=== PATIENT | male | born 1945 | race Hispanic/Latino ===

== ENCOUNTER 2018-01-31 08:37 | Inpatient (IN) | payer OTHER ==
[~2018-01-31] VITALS: Ht 175.3 cm; Wt 84.2 kg
[2018-01-31] VITALS (22 sets, daily range): BP systolic 91–125; BP diastolic 39–70
[2018-01-31] MEDS ORDERED: NOREPINEPHRINE 4MG/NS 250ML 250 ML IV SCH (10:15)
[2018-01-31] MEDS ORDERED: CARV6.25 PO (12:30)
[2018-01-31] MEDS ORDERED: EZET10TA26 PO (12:30)
[2018-01-31] MEDS ORDERED: DILT240C3 PO (12:30)
[2018-01-31] MEDS ORDERED: ATOR40TA69 PO (12:30)
[2018-01-31] MEDS ORDERED: OMEP20CA10 PO (12:30)
[2018-01-31] MEDS ORDERED: FURO20TA6 PO (12:32)
[2018-01-31] MEDS ORDERED: CEFEPIME 1GM+NS 50ML 50 ML IV SCH (13:30)
[2018-01-31 13:32] LABS: MEAN CORPUSCULAR HEMOGLOBIN 30.9 pg (27.0-33.0); MEAN CORPUSCULAR HGB CONC 33.4 g/dL (32.0-36.0); MEAN CORPUSCULAR VOLUME 92.6 fL (79-99); PLATELET COUNT (AUTO) 127 K/uL (130-400); RED BLOOD CELL COUNT(AUTO) 3.79 MIL/uL (4.50-6.20); RED CELL DISTRIBUTION WIDTH 15.5 % (11.0-15.5); WHITE BLOOD COUNT (AUTO) 22.1 K/uL (4.8-10.8)
[2018-01-31 13:44] LABS: INR 1.18 (0.85-1.15); PARTIAL THROMBOPLASTIN TIME 34.7 SEC (26.3-35.5); PROTHROMBIN TIME 12.4 SEC (9.6-11.6)
[2018-01-31 13:47] LABS: BILIRUBIN,TOTAL 1.4 mg/dL (0.2-1.0); TOTAL PROTEIN, SERUM 6.8 g/dL (6.0-8.3)
[2018-01-31] MEDS ORDERED: CEFEPIME HCL 1 GM VIAL IVP SCH (14:00)
[2018-01-31] MEDS: VANCOMYCIN 1GM+NS 250ML 250 ML IV SCH (14:00)
[2018-01-31] MEDS ORDERED: ATORVASTATIN CALCIUM 40 MG TABLET PO PRN (14:00)
[2018-01-31] MEDS ORDERED: PHARMACY COMMUNICATION MISC SCH (14:00)
[2018-01-31 14:01] LABS: APPEARANCE,URINE Clear (CLEAR); BILIRUBIN,URINE Negative (NEGATIVE); COLOR,URINE Dark Yellow (YELLOW); GLUCOSE, URINE (UA) Negative (NEGATIVE); KETONES,URINE Negative (NEGATIVE); LEUKOCYTE ESTERASE ,URINE Small (NEGATIVE); NITRATE,URINE Negative (NEGATIVE); OCCULT BLOOD,URINE Moderate (NEGATIVE); PROTEIN,URINE POS 2+ (NEGATIVE)
[2018-01-31] MEDS: VANCOMYCIN HCL 1 GM VIAL IV SCH (14:12)
[2018-01-31 14:22] LABS: BACTERIA,URINE Few /HPF (None Seen); SQUAMOUS EPITHELIAL CELL,UR 0-2 /HPF (0-2)
[2018-01-31 14:23] LABS: COARSE GRANULAR CASTS,URINE 0-2 /LPF (None Seen)
[2018-01-31] MEDS ORDERED: ACETAMINOPHEN EXTRA STRENGTH 500 MG TABLET ONE (14:29)
[2018-01-31] MEDS ORDERED: ACETAMINOPHEN EXTRA STRENGTH 500 MG TABLET PO PRN (14:30)
[2018-01-31] MEDS ORDERED: CARVEDILOL 6.25 MG TABLET PO SCH (21:00)
[2018-01-31] MEDS: FUROSEMIDE 20 MG TABLET PO SCH (21:09)
[2018-01-31] MEDS: CLOTRIMAZOLE 30 GM CREAM.GM. TP SCH (21:10)
[2018-02-01] VITALS (13 sets, daily range): BP systolic 112–139; BP diastolic 49–87
[2018-02-01 03:56] LABS: MEAN CORPUSCULAR HGB CONC 34.7 g/dL (32.0-36.0); MEAN CORPUSCULAR VOLUME 92.1 fL (79-99); NUCLEATED RED BLOOD CELLS 0.1 % (0.0-0.19); PLATELET COUNT (AUTO) 113 K/uL (130-400); RED BLOOD CELL COUNT(AUTO) 3.47 MIL/uL (4.50-6.20); RED CELL DISTRIBUTION WIDTH 15.6 % (11.0-15.5); WHITE BLOOD COUNT (AUTO) 19.1 K/uL (4.8-10.8)
[2018-02-01] MEDS ORDERED: DEXTROSE 50%-WATER 50 ML DISP.SYRIN IV PRN (08:00)
[2018-02-01] MEDS ORDERED: GLUCAGON 1MG KIT 1 MG ML IM PRN (08:00)
[2018-02-01] MEDS ORDERED: MAGNESIUM 2GM PREMIX 50ML 50 ML IV SCH (08:00)
[2018-02-01] MEDS: PANTOPRAZOLE SODIUM 40 MG TABLET.DR PO SCH (09:00)
[2018-02-01] MEDS: FUROSEMIDE 20 MG TABLET PO SCH ×2 (09:00→21:46)
[2018-02-01] MEDS: EZETIMIBE 10 MG TAB PO SCH (09:00)
[2018-02-01] MEDS ORDERED: DILTIAZEM HCL 120 MG CAP.SR.24H PO SCH (09:00)
[2018-02-01] MEDS: CLOTRIMAZOLE 30 GM CREAM.GM. TP SCH ×2 (09:16→21:47)
[2018-02-01] MEDS: CEFEPIME HCL 1 GM VIAL IVP SCH (09:16)
[2018-02-01] MEDS: INSULIN HUMULIN R 100 UNIT/ML 3ML SQ SCH ×3 (12:00→23:16)
[2018-02-01] MEDS ORDERED: THROMBIN-JMI 5000 UNIT/VIAL TP ONE (13:36)
[2018-02-01] MEDS ORDERED: LIDOCAINE HCL-MPF 2% 5ML VIAL ONE (13:37)
[2018-02-01] MEDS: VANCOMYCIN 1GM+NS 250ML 250 ML IV SCH (14:00)
[2018-02-01] MEDS: VANCOMYCIN HCL 1 GM VIAL IV SCH (15:29)
[2018-02-01] MEDS ORDERED: ACETAMINOPHEN 325 MG TAB PO PRN (16:30)
[2018-02-01] MEDS ORDERED: ONDANSETRON HCL MDV 20ML 2 MG/ML VIAL IVP PRN (16:30)
[2018-02-01] MEDS ORDERED: HYDROCODONE/ACETAMINOPHEN 5/325 MG TAB PO PRN (16:30)
[2018-02-01] MEDS: MORPHINE SULFATE 2 MG/ML 1ML SYG IVP PRN ×2 (16:44→18:32)
[2018-02-02] VITALS (16 sets, daily range): BP systolic 91–141; BP diastolic 42–60
[2018-02-02 04:20] LABS: HEMATOCRIT 31.8 % (42-54); MEAN CORPUSCULAR HEMOGLOBIN 31.2 pg (27.0-33.0); MEAN CORPUSCULAR HGB CONC 34.1 g/dL (32.0-36.0); MEAN CORPUSCULAR VOLUME 91.4 fL (79-99); PLATELET COUNT (AUTO) 100 K/uL (130-400); RED BLOOD CELL COUNT(AUTO) 3.48 MIL/uL (4.50-6.20); RED CELL DISTRIBUTION WIDTH 15.8 % (11.0-15.5); WHITE BLOOD COUNT (AUTO) 17.5 K/uL (4.8-10.8)
[2018-02-02 04:29] LABS: INR 1.17 (0.85-1.15); PARTIAL THROMBOPLASTIN TIME 35.1 SEC (26.3-35.5); PROTHROMBIN TIME 12.2 SEC (9.6-11.6)
[2018-02-02 04:33] LABS: CREATININE 2.8 mg/dL (0.5-1.5); POTASSIUM 3.7 mmol/L (3.5-5.1)
[2018-02-02] MEDS: CEFEPIME HCL 1 GM VIAL IVP SCH (07:59)
[2018-02-02] MEDS: CLOTRIMAZOLE 30 GM CREAM.GM. TP SCH ×2 (08:00→21:00)
[2018-02-02] MEDS: PANTOPRAZOLE SODIUM 40 MG TABLET.DR PO SCH (09:00)
[2018-02-02] MEDS: EZETIMIBE 10 MG TAB PO SCH (09:00)
[2018-02-02] MEDS: FUROSEMIDE 20 MG TABLET PO SCH ×2 (09:00→21:00)
[2018-02-02] MEDS ORDERED: CEFUROXIME 1.5GM+NS 100ML 100 ML IV SCH (12:00)
[2018-02-02] MEDS ORDERED: HEPARIN SODIUM 1000UNIT/ML 10ML VIAL ONE ×3 (13:50→19:39)
[2018-02-02] MEDS: VANCOMYCIN 1GM+NS 250ML 250 ML IV SCH (14:00)
[2018-02-02] MEDS: VANCOMYCIN HCL 1 GM VIAL IV SCH (14:05)
[2018-02-02] MEDS ORDERED: BACITRACIN 50,000 UNIT VIAL ONE ×2 (14:18→15:49)
[2018-02-02] MEDS ORDERED: PROPOFOL 10 MG/ML 20ML VIAL IV ONE (14:49)
[2018-02-02] MEDS ORDERED: FENTANYL CITRATE PF 50 MCG/1 ML 2ML VIAL ONE (15:22)
[2018-02-02] MEDS ORDERED: EPHEDRINE SULFATE 50 MG/ML AMPULE ONE ×2 (16:09→20:15)
[2018-02-02] MEDS ORDERED: PHENYLEPHRINE HCL 10 MG/ML 1ML VIAL IV ONE (16:45)
[2018-02-02] MEDS ORDERED: GLYCOPYRROLATE 0.2 MG/ML 5 ML VIAL ONE (16:45)
[2018-02-02] MEDS ORDERED: ROCURONIUM BROMIDE 10MG/1ML 5ML VL ONE (16:45)
[2018-02-02] MEDS ORDERED: LIDOCAINE HCL 4% LTA SOL 4 ML VIAL ONE (16:46)
[2018-02-02] MEDS ORDERED: SUCCINYLCHOLINE CHLORIDE 20 MG/ML 10 ML VIAL ONE (16:46)
[2018-02-02] MEDS ORDERED: LIDOCAINE HCL 2% JELLY 5 ML ONE (16:46)
[2018-02-02] MEDS ORDERED: ACETAMINOPHEN 325 MG TAB PO PRN (17:15)
[2018-02-02] MEDS ORDERED: TRAMADOL HCL 50 MG TABLET PO PRN ×2 (17:15)
[2018-02-02] MEDS ORDERED: MAGNESIUM HYDROXIDE 30 ML/UDCUP PO PRN (17:15)
[2018-02-02 17:49] LABS: ABG BASE EXCESS -13.5 mmol/L (-2.0-3.0); ABG OXYGEN SATURATION 99.1 % (95.0-99.0); ABG PCO2 72 mmHg (35-48)
[2018-02-02 18:20] LABS: ABG BASE EXCESS -7.5 mmol/L (-2.0-3.0); ABG HCO3 19.4 mmol/L (21.0-28.0); ABG OXYGEN SATURATION 99.1 % (95.0-99.0); ABG PCO2 45 mmHg (35-48)
[2018-02-02] MEDS ORDERED: MIDAZOLAM HCL 1 MG/ML 2ML VIAL ONE (18:31)
[2018-02-02 19:37] LABS: ABG BASE EXCESS -8.3 mmol/L (-2.0-3.0); ABG HCO3 17.8 mmol/L (21.0-28.0); ABG OXYGEN SATURATION 98.6 % (95.0-99.0); ABG PCO2 39 mmHg (35-48)
[2018-02-02] MEDS ORDERED: OCTYL 2-CYANOACRYLATE 1 EACH TP ONE (19:37)
[2018-02-02] MEDS ORDERED: PROTAMINE SULFATE 10 MG/ML 25ML VIAL IV ONE (19:39)
[2018-02-02] MEDS ORDERED: PROPOFOL 1000 MG/100 ML 100 ML IV ONE (20:33)
[2018-02-02] MEDS: INSULIN HUMULIN R 100 UNIT/ML 3ML SQ SCH (21:00)
[2018-02-02] MEDS ORDERED: PROPOFOL 1000 MG/100 ML IV PRN (21:45)
[2018-02-02 21:51] LABS: ABG BASE EXCESS -9.6 mmol/L (-2.0-3.0); ABG HCO3 16.8 mmol/L (21.0-28.0); ABG PCO2 39 mmHg (35-48)
[2018-02-02] MEDS ORDERED: SODIUM BICARB 50MEQ 50ML VIAL IV STA ×2 (22:02→23:34)
[2018-02-02] MEDS ORDERED: SODIUM BICARB 50MEQ 50ML VIAL ONE (22:09)
[2018-02-02 23:10] LABS: ABG BASE EXCESS -5.9 mmol/L (-2.0-3.0); ABG HCO3 19.6 mmol/L (21.0-28.0); ABG OXYGEN SATURATION 97.3 % (95.0-99.0); ABG PCO2 39 mmHg (35-48)
[2018-02-02] MEDS: IPRATROPIUM/ALBUTEROL SULFATE 3 ML SOLUTION IH PRN (23:17)
[2018-02-03] VITALS (27 sets, daily range): BP systolic 103–131; BP diastolic 34–74
[2018-02-03 03:07] LABS: ABG BASE EXCESS 0.5 mmol/L (-2.0-3.0); ABG HCO3 24.3 mmol/L (21.0-28.0); ABG OXYGEN SATURATION 99.8 % (95.0-99.0); ABG PCO2 37 mmHg (35-48)
[2018-02-03 04:26] LABS: HEMATOCRIT 28.7 % (42-54); MEAN CORPUSCULAR HEMOGLOBIN 31.6 pg (27.0-33.0); MEAN CORPUSCULAR HGB CONC 34.7 g/dL (32.0-36.0); PLATELET COUNT (AUTO) 90 K/uL (130-400); RED BLOOD CELL COUNT(AUTO) 3.15 MIL/uL (4.50-6.20); WHITE BLOOD COUNT (AUTO) 19.1 K/uL (4.8-10.8)
[2018-02-03 04:49] LABS: B-TYPE NATRIURETIC PEPTIDE 802 pg/mL (0-100)
[2018-02-03 05:06] LABS: ALBUMIN 1.3 g/dL (3.5-5.0); BILIRUBIN,TOTAL 2.2 mg/dL (0.2-1.0); CREATININE 2.7 mg/dL (0.5-1.5); POTASSIUM 3.9 mmol/L (3.5-5.1); TOTAL PROTEIN, SERUM 5.3 g/dL (6.0-8.3)
[2018-02-03] MEDS: INSULIN HUMULIN R 100 UNIT/ML 3ML SQ SCH ×4 (06:00→21:00)
[2018-02-03] MEDS: CEFEPIME HCL 1 GM VIAL IVP SCH (09:14)
[2018-02-03] MEDS: PANTOPRAZOLE SODIUM 40 MG TABLET.DR PO SCH (09:14)
[2018-02-03] MEDS: EZETIMIBE 10 MG TAB PO SCH (09:14)
[2018-02-03] MEDS: FUROSEMIDE 20 MG TABLET PO SCH (09:14)
[2018-02-03] MEDS: CLOTRIMAZOLE 30 GM CREAM.GM. TP SCH ×2 (09:15→20:36)
[2018-02-03] MEDS: IPRATROPIUM/ALBUTEROL SULFATE 3 ML SOLUTION IH PRN ×3 (11:02→23:32)
[2018-02-03 12:08] LABS: ABG BASE EXCESS -3.7 mmol/L (-2.0-3.0); ABG HCO3 19.1 mmol/L (21.0-28.0); ABG PCO2 29 mmHg (35-48)
[2018-02-03] MEDS: FUROSEMIDE 10 MG/ML 4ML VIAL IV SCH ×2 (12:20→20:35)
[2018-02-03] MEDS: VANCOMYCIN 1GM+NS 250ML 250 ML IV SCH (12:21)
[2018-02-03] MEDS: VANCOMYCIN HCL 1 GM VIAL IV SCH (13:16)
[2018-02-03] MEDS ORDERED: CEFAZOLIN 2GM / 50 ML 50 ML IV SCH (16:00)
[2018-02-03] MEDS: CEFAZOLIN SODIUM 1 GM VIAL IVP SCH (18:30)
[2018-02-04] VITALS (8 sets, daily range): BP systolic 116–143; BP diastolic 42–81
[2018-02-04] MEDS: CEFAZOLIN SODIUM 1 GM VIAL IVP SCH ×2 (05:05→16:46)
[2018-02-04] MEDS: INSULIN HUMULIN R 100 UNIT/ML 3ML SQ SCH ×4 (05:24→21:00)
[2018-02-04] MEDS: IPRATROPIUM/ALBUTEROL SULFATE 3 ML SOLUTION IH PRN ×4 (06:06→23:12)
[2018-02-04 08:31] LABS: BASOPHILS % (AUTO) 0.4 % (0.0-5.0); HEMATOCRIT 29.3 % (42-54); LYMPHOCYTES % (AUTO) 5.7 % (21.0-51.0); MEAN CORPUSCULAR HEMOGLOBIN 30.5 pg (27.0-33.0); MEAN CORPUSCULAR HGB CONC 33.6 g/dL (32.0-36.0); MEAN CORPUSCULAR VOLUME 90.7 fL (79-99); MONOCYTES % (AUTO) 2.8 % (3.0-13.0); NEUTROPHILS % (AUTO) 91.1 % (40.0-77.0); PLATELET COUNT (AUTO) 97 K/uL (130-400); RED BLOOD CELL COUNT(AUTO) 3.23 MIL/uL (4.50-6.20); RED CELL DISTRIBUTION WIDTH 16.1 % (11.0-15.5); WHITE BLOOD COUNT (AUTO) 22.7 K/uL (4.8-10.8)
[2018-02-04 08:46] LABS: ALBUMIN 1.6 g/dL (3.5-5.0); BILIRUBIN,TOTAL 1.1 mg/dL (0.2-1.0); CREATININE 2.8 mg/dL (0.5-1.5); MAGNESIUM 2.8 mg/dL (1.80-2.40); POTASSIUM 3.5 mmol/L (3.5-5.1); TOTAL PROTEIN, SERUM 6.2 g/dL (6.0-8.3)
[2018-02-04] MEDS: EZETIMIBE 10 MG TAB PO SCH (08:52)
[2018-02-04] MEDS: CLOPIDOGREL BISULFATE 75 MG TAB PO SCH (08:52)
[2018-02-04] MEDS: FUROSEMIDE 10 MG/ML 4ML VIAL IV SCH ×2 (08:52→21:04)
[2018-02-04] MEDS: PANTOPRAZOLE SODIUM 40 MG TABLET.DR PO SCH (08:53)
[2018-02-04] MEDS: ASPIRIN 81MG TAB.CHEW PO SCH (08:53)
[2018-02-04] MEDS: CARVEDILOL 3.125 MG TABLET PO SCH ×2 (08:53→21:05)
[2018-02-04] MEDS: CLOTRIMAZOLE 30 GM CREAM.GM. TP SCH ×2 (08:54→23:02)
[2018-02-05] VITALS (7 sets, daily range): BP systolic 122–139; BP diastolic 58–100
[2018-02-05 04:28] LABS: CREATININE 2.2 mg/dL (0.5-1.5); MAGNESIUM 2.4 mg/dL (1.80-2.40); POTASSIUM 3.2 mmol/L (3.5-5.1)
[2018-02-05] MEDS: CEFAZOLIN SODIUM 1 GM VIAL IVP SCH ×2 (04:35→16:17)
[2018-02-05] MEDS: INSULIN HUMULIN R 100 UNIT/ML 3ML SQ SCH ×4 (05:59→21:00)
[2018-02-05] MEDS: IPRATROPIUM/ALBUTEROL SULFATE 3 ML SOLUTION IH PRN ×4 (06:38→23:48)
[2018-02-05] MEDS: FUROSEMIDE 10 MG/ML 4ML VIAL IV SCH ×2 (09:06→20:34)
[2018-02-05] MEDS: CLOTRIMAZOLE 30 GM CREAM.GM. TP SCH ×2 (09:07→20:39)
[2018-02-05] MEDS: ASPIRIN 81MG TAB.CHEW PO SCH (09:07)
[2018-02-05] MEDS: CARVEDILOL 3.125 MG TABLET PO SCH ×2 (09:07→20:34)
[2018-02-05] MEDS: PANTOPRAZOLE SODIUM 40 MG TABLET.DR PO SCH (09:07)
[2018-02-05] MEDS: CLOPIDOGREL BISULFATE 75 MG TAB PO SCH (09:07)
[2018-02-05] MEDS: EZETIMIBE 10 MG TAB PO SCH (09:07)
[2018-02-05] MEDS ORDERED: POTASSIUM CHLORIDE 20 MEQ ERTAB PO SCH (11:30)
[2018-02-06 01:00] VITALS: BP 102/59
[2018-02-06 04:05] VITALS: BP 129/54
[2018-02-06] MEDS: CEFAZOLIN SODIUM 1 GM VIAL IVP SCH (04:30)
[2018-02-06] MEDS: IPRATROPIUM/ALBUTEROL SULFATE 3 ML SOLUTION IH PRN ×2 (06:19→11:36)
[2018-02-06] MEDS: INSULIN HUMULIN R 100 UNIT/ML 3ML SQ SCH ×2 (06:30→11:30)
[2018-02-06 07:17] VITALS: BP 142/74
[2018-02-06] MEDS: CLOPIDOGREL BISULFATE 75 MG TAB PO SCH (09:06)
[2018-02-06] MEDS: PANTOPRAZOLE SODIUM 40 MG TABLET.DR PO SCH (09:06)
[2018-02-06] MEDS: EZETIMIBE 10 MG TAB PO SCH (09:06)
[2018-02-06] MEDS: ASPIRIN 81MG TAB.CHEW PO SCH (09:06)
[2018-02-06] MEDS: CARVEDILOL 3.125 MG TABLET PO SCH (09:07)
[2018-02-06] MEDS: FUROSEMIDE 10 MG/ML 4ML VIAL IV SCH (09:07)
[2018-02-06] MEDS: CLOTRIMAZOLE 30 GM CREAM.GM. TP SCH (09:15)
[2018-02-06 11:19] VITALS: BP 131/58
== END 2018-02-06 16:16 | DRG 853 ==
LOC: 2BH 09:40 → 2DH 02-04 16:39
PROVIDERS: ADMIT Internal Medicine Pulmonary Disease; ATTEND Internal Medicine Pulmonary Disease
PROC: 5A1945Z Respiratory Ventilation, 24-96 Consecutive Hours (ICD-10-PCS; 2018-02-02)
PROC: 04QK0ZZ Repair Right Femoral Artery, Open Approach (ICD-10-PCS; principal; 2018-02-02 14:42)
PROC: 041K0ZH Bypass Right Femoral Artery to Right Femoral Artery, Open Approach (ICD-10-PCS; 2018-02-02 14:42)
PROC: 0BH17EZ Insertion of Endotracheal Airway into Trachea, Via Natural or Artificial Opening (ICD-10-PCS; 2018-02-02 14:42)
DX: A41.9 Sepsis, unspecified organism (principal); E43 Unspecified severe protein-calorie malnutrition; I21.4 Non-ST elevation (NSTEMI) myocardial infarction; I50.23 Acute on chronic systolic (congestive) heart failure; E87.2 Acidosis; I13.0 Hypertensive heart and chronic kidney disease with heart failure and stage 1 through stage 4 chronic kidney disease, or unspecified chronic kidney disease; L02.214 Cutaneous abscess of groin; I72.8 Aneurysm of other specified arteries; I12.9 Hypertensive chronic kidney disease with stage 1 through stage 4 chronic kidney disease, or unspecified chronic kidney disease; Z68.27 Body mass index [BMI] 27.0-27.9, adult; D64.9 Anemia, unspecified; A49.01 Methicillin susceptible Staphylococcus aureus infection, unspecified site; E11.22 Type 2 diabetes mellitus with diabetic chronic kidney disease; E78.5 Hyperlipidemia, unspecified; I25.10 Atherosclerotic heart disease of native coronary artery without angina pectoris; I25.5 Ischemic cardiomyopathy; I72.3 Aneurysm of iliac artery; I72.4 Aneurysm of artery of lower extremity; N18.9 Chronic kidney disease, unspecified; S30.1XXA Contusion of abdominal wall, initial encounter; Z95.810 Presence of automatic (implantable) cardiac defibrillator; Z95.1 Presence of aortocoronary bypass graft; Z82.49 Family history of ischemic heart disease and other diseases of the circulatory system
CPT/HCPCS: 36002; 36415; 71045; 76882; 76942; 80048; 80053; 81001; 82330; 82435; 82803; 82947; 82948; 83605; 83735; 83880; 84132; 84295; 85018; 85025; 85027; 85347; 85610; 85730; 86850; 86900; 86901; 86922; 87040; 87070; 87076; 87186; 88304; 93306; 94002; 94003; 94640; 94664; 94667; 94668; 97039; A4218; C1768; C1781; J0330; J0690; J0692; J1644; J1815; J1940; J2250; J2370; J2704; J2720; J3010; J3370; J3475; J3490; J7030; J7040